=== PATIENT | female | born 2000 ===

== ENCOUNTER 2025-02-09 09:13 | Outpatient (CLI) | payer OTHER | END 2025-02-09 09:14 | disposition home or self-care (01) | LOC: PRENATAL 09:13 | PROVIDERS: ATTEND Obstetrics & Gynecology Maternal & Fetal Medicine | DX: O26.849 Uterine size-date discrepancy, unspecified trimester (principal); Z36.0 Encounter for antenatal screening for chromosomal anomalies; Z14.8 Genetic carrier of other disease; Z3A.15 15 weeks gestation of pregnancy ==

== ENCOUNTER → 2025-03-15 08:54 | Outpatient (CLI) | payer OTHER | END | disposition home or self-care (01) | LOC: PRENATAL 08:54 | PROVIDERS: ATTEND Obstetrics & Gynecology Maternal & Fetal Medicine | DX: O44.00 Complete placenta previa NOS or without hemorrhage, unspecified trimester (principal); O34.219 Maternal care for unspecified type scar from previous cesarean delivery; Z14.8 Genetic carrier of other disease; Z3A.20 20 weeks gestation of pregnancy ==

== ENCOUNTER 2025-06-07 10:47 | Outpatient (CLI) | payer OTHER | END 2025-06-07 10:48 | disposition home or self-care (01) | LOC: PRENATAL 10:47 | PROVIDERS: ATTEND Obstetrics & Gynecology Maternal & Fetal Medicine | DX: O26.849 Uterine size-date discrepancy, unspecified trimester (principal); O36.8130 Decreased fetal movements, third trimester, not applicable or unspecified; O34.219 Maternal care for unspecified type scar from previous cesarean delivery; Z14.8 Genetic carrier of other disease; O32.9XX0 Maternal care for malpresentation of fetus, unspecified, not applicable or unspecified; O60.00 Preterm labor without delivery, unspecified trimester; Z3A.32 32 weeks gestation of pregnancy ==

== ENCOUNTER 2025-07-21 10:00 | Inpatient (IN) | payer OTHER ==
[~2025-07-21] VITALS: Ht 160 cm; Wt 3.2 kg
[2025-07-21] MEDS ORDERED: DIALYVITE 800-1 EACH PO (11:52)
[2025-07-21] MEDS ORDERED: PRENATABS RX T1 EACH PO (11:52)
[2025-07-21 12:11] LABS: BASO % 0.2 % (0.1-1.2); EOS # 0.06 (0.04-0.54); EOS % 0.7 % (0.7-7.0); LYMPH # 1.50 (1.18-3.74); LYMPH % 17.4 % (19.3-53.1); MEAN PLATELET VOLUME 11.30 fl (9.4-12.4); MONO # 0.61 (0.24-0.82); MONO % 7.1 % (4.7-12.5); NEUT # 6.37 (1.56-6.13); NEUT % 74.0 % (34.0-71.1); RED CELL DISTRIBUTION WIDTH 13.4 % (11.6-14.4)
[2025-07-21 12:20] LABS: URINE APPEARANCE Clear; URINE BILIRRUBIN Negative (NEGATIVE); URINE BLOOD Negative; URINE COLOR Yellow; URINE GLUCOSE Negative (NEGATIVE); URINE KETONE Negative (NEGATIVE); URINE LEUKOCYTE Negative; URINE NITRATE Negative; URINE PROTEIN Negative (NEGATIVE); URINE UROBILINOGEN 1.0 E.U./dl
[2025-07-21 12:21] LABS: URINE BACTERIA 302.3 uL (0.0-1933); URINE EPITHELIAL CELLS 11.0 uL (0.0-38.8); URINE WBC 5.0 uL (0.0-23.2)
[2025-07-21 12:25] LABS: URINE CAST 0.00 uL (0.0-1.40); URINE RBC 0.4 uL (0.0-20.8)
[2025-07-21 12:40] LABS: INR 0.98
[2025-07-25 08:22] VITALS: BP 105/70
[2025-07-25] MEDS ORDERED: CEFAZOLIN SODIUM 1,000 MG VIAL ONE (13:04)
[2025-07-25] MEDS ORDERED: CITRIC ACID/SODIUM CITRATE 30 ML BLIST.PACK PO ONE (13:04)
[2025-07-25] MEDS ORDERED: OXYTOCIN 10 UNITS/ML VIAL ONE (13:10)
[2025-07-25] MEDS ORDERED: ERYTHROMYCIN BASE OPHT 1GM EACH TUBE OP ONE (13:10)
[2025-07-25] MEDS ORDERED: CHLORHEXIDINE GLUCONATE 120 ML BOTTLE TOP ONE (14:46)
[2025-07-25] MEDS ORDERED: MORPHINE SULFATE 4 MG/ML CARTRIDGE IV SCH (17:00)
[2025-07-25 18:26] VITALS: BP 116/73
[2025-07-25 21:19] LABS: BASO % 0.2 % (0.1-1.2); EOS # 0.02 (0.04-0.54); EOS % 0.2 % (0.7-7.0); LYMPH # 1.32 (1.18-3.74); LYMPH % 10.2 % (19.3-53.1); MEAN PLATELET VOLUME 11.00 fl (9.4-12.4); MONO # 0.59 (0.24-0.82); MONO % 4.5 % (4.7-12.5); NEUT # 10.98 (1.56-6.13); NEUT % 84.5 % (34.0-71.1); RED CELL DISTRIBUTION WIDTH 13.4 % (11.6-14.4)
[2025-07-25] MEDS ORDERED: KETOROLAC TROMETHAMINE 60 MG VIAL IM ONE (22:00)
[2025-07-26] VITALS: BP 100/64
[2025-07-26] MEDS ORDERED: OxyCODONE HCL 5 MG TABLET (ROXICODONE) PO SCH (05:00)
[2025-07-26] MEDS ORDERED: DOCUSATE SODIUM 100MG CAP PO SCH (08:00)
[2025-07-26] MEDS ORDERED: SIMETHICONE 125 MG CAPSULE PO SCH (08:00)
[2025-07-26] MEDS ORDERED: PNV,CALCIUM 72/IRON/FOLIC ACID 1 TAB TABLET PO SCH (08:00)
[2025-07-26 08:57] VITALS: BP 97/60
[2025-07-26 17:42] VITALS: BP 110/76
[2025-07-27 00:49] VITALS: BP 104/69
[2025-07-27 08:56] VITALS: BP 109/73
== END 2025-07-27 12:38 | disposition home or self-care (01) | DRG 785 ==
LOC: OB/GYN 07-25 01:00 → O/R 07-25 01:00 → SURG 07-25 07:00 → OB/GYN 07-25 16:04
PROVIDERS: ADMIT Obstetrics & Gynecology; ATTEND Obstetrics & Gynecology
PROC: 0UB70ZZ Excision of Bilateral Fallopian Tubes, Open Approach (ICD-10-PCS; 2025-07-25)
PROC: 4A1HXCZ Monitoring of Products of Conception, Cardiac Rate, External Approach (ICD-10-PCS; 2025-07-25)
PROC: 10D00Z1 Extraction of Products of Conception, Low, Open Approach (ICD-10-PCS; principal; 2025-07-25 07:00)
DX: O34.211 Maternal care for low transverse scar from previous cesarean delivery (principal); Z30.2 Encounter for sterilization; Z3A.39 39 weeks gestation of pregnancy; Z37.0 Single live birth